=== PATIENT | female | born 1980 | race Caucasian/White ===

== ENCOUNTER → 2017-12-25 11:40 | Outpatient (CLI) | payer OTHER, SELFPAY ==
[2017-12-25 14:10] LABS: Cholesterol 221 mg/dL (200); Ferritin 12 ng/mL (8-252); High Density Lipoprotein 43 mg/dL; Triglycerides 102 mg/dL; Very Low Density Lipoprotein 20 mg/dL (5-40)
[2017-12-29 13:00] LABS: HPV HC, High Risk Negative (Negative)
== END ==
LOC: MFPLAB 11:40 → LABSPEC 15:10
PROVIDERS: Family Provider Family Medicine; PCP Family Medicine; Visit Provider Family Medicine
DX: Z00.00 Encounter for general adult medical examination without abnormal findings (principal); Z01.419 Encounter for gynecological examination (general) (routine) without abnormal findings
CPT/HCPCS: 36415; 80061; 82728; 87624; 88175; G0145

== ENCOUNTER → 2018-02-26 12:22 | Outpatient (CLI) | payer OTHER, SELFPAY ==
[2016-09-24 01:33] VITALS: BMI 30.8
[2018-02-26 14:22] LABS: Absolute Lymphocyte Count 1.88 X10^3/ul (0.83-4.51); Basophil# 0.03 X10^3/uL; Basophil% 0.4 % (0-1); Eosinophil# 0.09 X10^3/uL; Eosinophils% 1.2 % (0-5); Hematocrit 44.2 % (37-47); Hemoglobin 14.6 g/dl (12.0-15.0); Lymphocyte # 1.88 X10^3/ul (4.0); Lymphocyte % 25.4 % (19-41); Mean Corpuscular Hgb 29.3 pg (27.0-32.0); Mean Corpuscular Volume 88.6 fL (81-99); Mean Platelet Vol. 10.2 fl (6.2-12.0); Monocyte# 0.35 X10^3/uL; Monocyte% 4.7 % (0-10); Neutrophil # 5.03 X10^3/uL (2.7-7.7); Neutrophil % 68.2 % (47-70); Platelet Count 343 K/mm3 (150-450); RBC Distribution Width CV 12.7 % (11.6-14.6); RBC Distribution Width SD 40.8 fl (35.1-43.9); Red Blood Count 4.99 M/mm3 (4.2-5.4); White Blood Count 7.4 K/mm3 (4.4-11.0)
[2018-02-26 14:29] LABS: POSITIVE COUNT NO; POSITIVE DIFFERENTIAL NO; POSITIVE MORPHOLOGY NO
[2018-02-26 14:37] LABS: ALB/GLOB Ratio 1.1 RATIO (0.9-2.4); AST(SGOT) 18 U/L (15-37); Alanine Aminotransfer ALT/SGPT 30 U/L (13-56); Alkaline Phosphatase 71 U/L (45-117); Anion Gap 12 (5-15); BUN 10 mg/dL (7-18); BUN/Creat Ratio 12.8 RATIO (10-20); Calcium,Total 9.5 mg/dL (8.5-10.1); Chloride 106 mmol/L (98-107); Creatinine, Serum 0.78 mg/dL (0.55-1.02); EST Glomerular Filtration Rate 89 mL/min (>60); Est Glom Filt Rate - Afr Amer 107 mL/min (>60); Globulin 3.5 g/dL (2.2-4.2); Glucose 92 mg/dL (74-106); Lipase 92 U/L (73-393); Potassium 4.6 mmol/L (3.5-5.1); Protein, Total 7.5 g/dL (6.4-8.2); Sodium Level 141 mmol/L (136-145)
== END ==
PROVIDERS: Family Provider Family Medicine; PCP Family Medicine; Visit Provider Family Medicine
DX: K31.9 Disease of stomach and duodenum, unspecified (principal); R10.13 Epigastric pain; R10.11 Right upper quadrant pain
CPT/HCPCS: 36415; 80053; 83690; 85025

== ENCOUNTER → 2018-03-01 09:21 | Outpatient (CLI) | payer OTHER, SELFPAY ==
--- NOTE | 2018-03-01 09:32 | US_ITS ---
STUDY: ABDOMINAL ULTRASOUND - RIGHT UPPER QUADRANT REASON FOR VISIT: Female, 37 years old. Right upper quadrant pain TECHNIQUE: Ultrasound evaluation of the right upper quadrant was performed with real-time and static ojeda-scale imaging. TECHNICAL QUALITY: Adequate. COMPARISON: None. FINDINGS: Liver: The liver measures 13.3 cm. There is normal echogenicity of the liver. The bile ducts are within normal limits. There is hepatic color flow. The direction of portal flow is hepatopetal. There is no demonstrated mass lesion. Gallbladder: Normal distended gallbladder. The gallbladder wall measures 2 mm. There is a negative sonographic Seymour's sign. There is no pericholecystic fluid. There are no gallstones. Common Bile Duct (C.B.D.): The common bile duct measures 4 mm. Pancreas: Normal size of the head, body and tail of the pancreas. There is normal echogenicity of the pancreas. There is no demonstrated pancreatic mass or cyst. Right Kidney: Normal size of the right kidney. The right kidney measures 10.6 x 4.2 x 4.1 cm. Normal renal cortex. The right cortex measures 1.6 cm. There is no demonstrated renal mass or cyst. There is no right hydronephrosis. US/Abdomen Limited IMPRESSION: Normal right upper quadrant ultrasound examination. Electronically Signed: Carmelo Purdy DO at 0:00 EST Tel [phone], Service support ,
--- OUTSIDE RECORDS SUMMARY | 2018-04-26 10:19 | XMS RPT_ITS ---
:1980 Author Organization [facility] Care Team Providers Name Role Phone Nurse, Surgery Attending Unavailable Eleuterio Camacho Referring Unavailable Eleuterio Camacho Attending Unavailable Doug, Eleuterio Primary Care Unavailable Eleuterio Camacho Attending Unavailable Doug, Eleuterio Primary Care Unavailable Eleuterio Camacho Attending Unavailable Eleuterio Camacho Referring Unavailable Eleuterio Camacho Primary Care Unavailable PROBLEMS PROBLEMS DATE TYPE CONDITION / CODE ATTENDING STATUS SOURCE 02/26/2018 Unknown R10.11 - Right Eleuterio Camacho Active [place] upper quadrant Community pain / Hospital R10.11(ICD-10) Repository 02/26/2018 Unknown K31.9 - Disease Eleuterio Camacho Active [place]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 and Community duodenum, Hospital unspecified / Repository K31.9(ICD-10) 12/25/2017 Unknown Z00.00 - Eleuterio Camacho Active [place] Encounter for [facility] medical Repository examination without abnormal findings / Z00.00(ICD-10) PROCEDURES PROCEDURES No Procedure Records FoundRESULTS RESULTS ABDOMEN LIMITED Observed: 03/01/2018 Status: F Source: [place] 9:33 AM [facility] REPOSITORY [facility] Imaging Services [address] [place] [address] Abdomen Limited MR#: [id number] Acct: [id number] Name: CLEMENTE FELIX Rep #: [id number] : 1980 F 37 From: Carmelo Purdy DO PCP: Eleuterio Camacho MD Status: REG CLI Study: Abdomen Limited Date of Exam: 03/01/18 Exam# [id number] Ordering Dr: Eleuterio Cmaacho MD STUDY: ABDOMINAL ULTRASOUND - RIGHT UPPER QUADRANT REASON FOR VISIT: Female, 37 years old. Right upper quadrant pain TECHNIQUE: Ultrasound evaluation of the right upper quadrant was performed with real-time and static ojeda-scale imaging. TECHNICAL QUALITY: Adequate. COMPARISON: None. FINDINGS: Liver: The liver measures 13.3 cm. There is normal echogenicity of the liver. The bile ducts are within normal limits. There is hepatic color flow. The direction of portal flow is hepatopetal. There is no demonstrated mass lesion. Gallbladder: Normal distended gallbladder. The gallbladder wall measures 2 mm. There is a negative sonographic Seymour's sign. There is no pericholecystic fluid. There are no gallstones. Common Bile Duct (C.B.D.): The common bile duct measures 4 mm. Pancreas: Normal size of the head, body and tail of the pancreas. There is normal echogenicity of the pancreas. There is no demonstrated pancreatic mass or cyst. Right Kidney: Normal size of the right kidney. The right kidney measures 10.6 x 4.2 x 4.1 cm. Normal renal cortex. The right cortex measures 1.6 cm. There is no demonstrated renal mass or cyst. There is no right hydronephrosis. US/Abdomen Limited IMPRESSION: Normal right upper quadrant ultrasound examination. Electronically Signed: Carmelo Purdy DO at 0:00 EST Tel [phone], Service support , CC: Eleuterio Camacho MD Retinal Angiographer: Signed CBC W/DIFF, AUTOMATED Collected: 02/26/2018 Status: F Source: [place] 12:24 PM [facility] REPOSITORY TYPE CODE TESTS RESULT OUT OF RANGE REFERENCE UNITS LAB L100.1000 4.4-11.0 K/mm3 Normal WBC 7.4 LAB L100.1200 4.2-5.4 M/mm3 Normal RBC 4.99 LAB L100.1300 12.0-15.0 g/dl Normal HGB 14.6 LAB L100.1400 37-47 % Normal HCT 44.2 LAB L100.1500 81-99 fL Normal MCV 88.6 LAB L100.1600 27.0-32.0 pg Normal MCH 29.3 LAB L100.1700 32-36 g/gl Normal MCHC 33.0 LAB L100.1810 11.6-14.6 % Normal RDW CV 12.7 LAB L100.1820 35.1-43.9 fl Normal RDW SD 40.8 LAB L100.1900 150-450 K/mm3 Normal PLT 343 LAB L100.2000 6.2-12.0 fl Normal MPV 10.2 LAB L100.2100 47-70 % Normal NEUT% 68.2 LAB L100.2200 19-41 % Normal LY% 25.4 LAB L100.2300 0-10 % Normal MONO% 4.7 LAB L100.2400 0-5 % Normal EO% 1.2 LAB L100.2500 0-1 % Normal BASO% 0.4 LAB L100.2550 0.0-0.9 % Normal IM GRAN % 0.100 Result Comment: IG% - Immature Granulocytes (promyelocytes, myelocytes and metamyelocytes) > 1% indicates that a LEFT SHIFT is Present. LAB L100.2620 2.0-7.7 X10 3/uL Normal Absolute Neut 5.0 LAB L100.2720 0.83-4.51 X10 3/ul Normal Absolute Lymph 1.88 Performed By: #### L100.0100, L500.4050, L501.2450 #### [facility] [address] [place], [place], [id number] COMPREHENSIVE METABOLIC Collected: 02/26/2018 Status: F Source: [place] MARLEY 12:24 PM [facility] REPOSITORY TYPE CODE TESTS RESULT OUT OF RANGE REFERENCE UNITS LAB L501.0100 74-106 mg/dL Normal GLU 92 Result Comment: Please note revised GLUCOSE reference range effective 2017. LAB L501.1000 7-18 mg/dL Normal BUN 10 LAB L501.1100 0.55-1.02 mg/dL Normal CREAT,SERUM 0.78 Result Comment: The validity of the calculated GFR AND GFRAA in patients over 70 years has not been determined. Clinical correlation is essential. LAB L501.1110 >60 mL/min Normal EST GFR 89 Result Comment: Non- GFR Calc LAB L501.1115 >60 mL/min Normal EST GFR - AA 107 Result Comment: GFR Calc LAB L501.1300 10-20 RATIO Normal BUN/CRE 12.8 LAB L501.1500 6.4-8.2 g/dL T Normal PROT 7.5 LAB L501.1800 3.2-5.0 g/dL Normal ALB 4.0 LAB L501.1950 2.2-4.2 g/dL Normal GLOB 3.5 LAB L501.2000 0.9-2.4 RATIO Normal A/G 1.1 LAB L501.2200 8.5-10.1 mg/dL CA Normal 9.5 LAB L501.4100 15-37 U/L Normal AST 18 LAB L501.4305 45-117 U/L Normal ALK P 71 LAB L501.4405 13-56 U/L Normal ALT 30 LAB L501.4600 0.20-1.00 mg/dL T Normal BILI 0.50 LAB L501.5300 136-145 mmol/L NA Normal 141 LAB L501.5600 3.5-5.1 mmol/L K Normal 4.6 LAB L501.5900 98-107 mmol/L CL Normal 106 LAB L501.6100 21.0-32.0 mmol/L Normal CO2 23.0 LAB L501.6200 5-15 Normal GAP 12 Performed By: #### L100.0100, L500.4050, L501.2450 #### [facility] [address] [place], [address] LIPASE Collected: 02/26/2018 Status: F Source: GRAY 12:24 PM [facility] REPOSITORY TYPE CODE TESTS RESULT OUT OF RANGE REFERENCE UNITS LAB L501.2450 73-393 U/L Normal LIPASE 92 Performed By: #### L100.0100, L500.4050, L501.2450 #### [facility] [address] [place], [address] LIPID PROFILE Collected: 12/25/2017 Status: F Source: GRAY 11:42 AM [facility] REPOSITORY TYPE CODE TESTS RESULT OUT OF RANGE REFERENCE UNITS LAB L501.4900 200 mg/dL High CHOL 221 Result Comment: <200 mg/dL Desirable 200-240 mg/dL Borderline >240 mg/dL High Risk LAB L501.5000 mg/dL Normal TRIG 102 Result Comment: The drugs N-Acetylcysteine and Metamizole may falsely depress this assay. Serum Triglycerides Reference Interval Normal <150 mg/dL Borderline high 150 - 199 mg/dL High 200 - 499 mg/dL Very High > or = 500 mg/dL LAB L501.6400 mg/dL Normal HDL 43 Result Comment: The drugs N-Acetylcysteine and Metamizole may falsely depress this assay. Reference Range HDL <40 mg/dL Low HDL Cholesterol HDL >or= 60 mg/dL High HDL Cholesterol LAB L501.6500 0-130 mg/dL High LDL 158 LAB L501.6600 5-40 mg/dL Normal VLDL 20 Performed By: #### L500.4100, L503.6550 #### [facility] [address] [place], [address] FERRITIN Collected: 12/25/2017 Status: F Source: GRAY 11:42 AM [facility] REPOSITORY TYPE CODE TESTS RESULT OUT OF RANGE REFERENCE UNITS LAB L503.6550 8-252 ng/mL Normal FERRITIN 12 Performed By: #### L500.4100, L503.6550 #### [facility] [address] [place], [address] PAP I-G HPV HI Collected: 12/25/2017 Status: F Source: [place] RISK 11:30 AM [facility] REPOSITORY Order Comment: CYTOLOGY INFORMATION: - CLINICAL INFORMATION: - DATE LMP/MENOPAUSE: 12/11/17 LMP - COLLECTION VIAL: Thin Prep Vial - INTAKE NURSE SOURCE: VAGINAL - COLLECTION TECHNIQUE: BRUSH ONLY Specimen Comment: [id number] Specimen Comment: Source.............Vagina Specimen Comment: LMP / Prev Treat...[id number] Specimen Comment: No. of containers..01 ThinPrep Vial TYPE CODE TESTS RESULT OUT OF RANGE REFERENCE UNITS LAB L7400.0800 . Normal DIAGN Comment Result Comment: NEGATIVE FOR INTRAEPITHELIAL LESION AND MALIGNANCY. THIS SPECIMEN WAS RESCREENED PART OF OUR BUILDING ARCHITECT PROGRAM. LAB L7400.0900 . Normal ADEQ Comment Result Comment: Satisfactory for evaluation. LAB L7400.1400 . Normal PERFORM Comment Result Comment: Kaylynn Wilson, Van Driver (ASCP) LAB L7400.1500 . Normal QC Comment REV Result Comment: Monica Jefferson, Supervisory Van Driver (ASCP) LAB L7400.2575 . Normal TEST METHOD Comment Result Comment: This liquid based ThinPrep(R) pap test was screened with the use of an image guided system. LAB L7400.2600 . Normal . COMM LAB L7400.2700 . Normal PAPSMR Comment Result Comment: The Pap smear is a screening test designed to aid in the detection of premalignant and malignant conditions of the uterine cervix. It is not a diagnostic procedure and should not be used as the sole means of detecting cervical cancer. Both false-positive and false-negative reports do occur. LAB L7400.2950 Negative Normal HPV Negative HC,HGH RISK Result Comment: This high-risk HPV test detects thirteen high-risk types (16/18/31/33/35/39/45/51/52/56/58/59/68) without differentiation. Performed at: [address] [id number] Criminalist Technician: Rosy Bernard MD, Phone: [phone] Performed at: =[address] [id number] Criminalist Technician: Rosy Bernard MD, Phone: [phone] Performed By: #### L7400.0375 #### [facility] (refer to report for specific site) refer to report for address and phone number ALLERGIES ALLERGIES DATE TYPE / CODE NAME / CODE REACTION SEVERITY SOURCE 09/24/2016 Drug wheat/[id number] Swelling [place] Allergy/[id number](S (RXNORM) [facility]) Hospital Repository 09/24/2016 Miscellaneous [place]ONAL Other [place] Allergy/[id number]([facility]) Hospital Repository ENCOUNTERS ENCOUNTERS ADMIT/DISCHARGE ACCOUNT ADMITTING ENCOUNTER LOCATION SOURCE NUMBER CLASS 03/13/2018/ [id number] Ambulatory BMSBuilding:B [place] 8 4 [facility] Repository 03/01/2018 [id number] Ambulatory [place] 8 [facility] ing:[place] Repository 02/26/2018 [id number] Amb[place] [facility] 12/25/2017 [id number] Ambulatory [place] [facility] ing:[facility] Repository PAYERS PAYERS ENCOUNTER GUARANTOR PAYER SUBSCRIBER SOURCE 03/13/2018 CLEMENTE [id number] Primary CLEMENTE FELIXB: [place] SALGUERO Insurance:Post.Bid.Ship [id number] [facility] icy Number: [place], [place] [address]Fhm: [id number] Repository Date:[id number] [address]PV: 03/13/2018 Secondary NOT GIVENUNK [place] Insurance:SELF PAY [facility] Number: Effective Repository Date:2018-03-13 03/01/2018 CLEMENTE [id number] Primary CLEMENTE GAYTANB: [place] Insurance:Post[employer] [id number] [facility] icy Number: [place], [place] [address]Llx: [id number] Repository Date:3369-31-73[address], [place] [address]RZ: 03/01/2018 Secondary NOT GIVENUNK [place] Insurance:SELF PAY [facility] Number: Effective Repository Date:2018-02-27 02/26/2018 Clemente [id number] Primary Clemente GaytanB: [place] Jaime Insurance:[employer] [id number] Number: [place], [place] [address]Mlu: [id number] Repository Date:8198-05-67[address], [place] [address]IR: 02/26/2018 Secondary NOT GIVENUNK [place] Insurance:SELF PAY [facility]: Effective Repository Date:2018-02-26 12/25/2017 Clemente [id number] Primary Clemente GaytanB: [place] Jaime Insurance:[facility] [id number] [facility] icy Number: [place], [place] [address]Kms: [id number] Repository Date:3443-67-08[address] () [address], [place] [address]SI: 12/25/2017 Secondary NOT GIVENUNK [place] Insurance:SELF PAY [facility] Number: Effective Repository Date:2017-12-25
== END ==
PROVIDERS: Family Provider Family Medicine; PCP Family Medicine; Referring Provider Family Medicine; Visit Provider Family Medicine
DX: R10.11 Right upper quadrant pain (principal)
CPT/HCPCS: 76705

== ENCOUNTER → 2018-06-13 14:37 | Outpatient (CLI) | payer OTHER, SELFPAY ==
[2016-09-24 01:33] VITALS: BMI 30.8
== END ==
PROVIDERS: Family Provider Family Medicine; PCP Family Medicine; Referring Provider Family Medicine; Visit Provider Family Medicine
DX: Z20.818 Contact with and (suspected) exposure to other bacterial communicable diseases (principal)
CPT/HCPCS: 87070

== ENCOUNTER → 2018-12-19 10:55 | Outpatient (CLI) | payer OTHER, SELFPAY ==
[2016-09-24 01:33] VITALS: BMI 30.8
[2018-12-19 12:34] LABS: Absolute Lymphocyte Count 2.22 X10^3/uL (0.83-4.51); Absolute Neutrophil Count 4.3 X10^3/uL (2.0-7.7); Basophil# 0.06 X10^3/uL; Basophil% 0.8 % (0-1); Eosinophils% 5.3 % (0-5); Hematocrit 43.7 % (37-47); Hemoglobin 14.1 g/dL (12.0-15.0); Lymphocyte # 2.22 X10^3/ul (4.0); Lymphocyte % 29.6 % (19-41); Mean Corp Hgb Conc 32.3 g/dL (32-36); Mean Corpuscular Hgb 29.4 pg (27.0-32.0); Mean Platelet Vol. 10.2 fl (6.2-12.0); Monocyte# 0.46 X10^3/uL; Monocyte% 6.1 % (0-10); NRBC Flagged by Analyzer 0 % (0-5); Neutrophil # 4.33 X10^3/uL (2.7-7.7); Neutrophil % 57.9 % (47-70); Platelet Count 324 K/mm3 (150-450); RBC Distribution Width CV 12.5 % (11.6-14.6); RBC Distribution Width SD 41.2 fl (35.1-43.9); White Blood Count 7.5 K/mm3 (4.4-11.0)
[2018-12-19 12:47] LABS: ALB/GLOB Ratio 0.9 RATIO (0.9-2.4); AST(SGOT) 18 U/L (15-37); Alanine Aminotransfer ALT/SGPT 28 U/L (13-56); Albumin, Serum 3.9 g/dL (3.2-5.0); Alkaline Phosphatase 62 U/L (45-117); Anion Gap 5 (5-15); BUN 12 mg/dL (7-18); BUN/Creat Ratio 13.6 RATIO (10-20); Calcium,Total 9.3 mg/dL (8.5-10.1); Chloride 106 mmol/L (98-107); Cholesterol 213 mg/dL (200); Creatinine, Serum 0.88 mg/dL (0.55-1.02); EST Glomerular Filtration Rate 77 mL/min (>60); Est Glom Filt Rate - Afr Amer 93 mL/min (>60); Globulin 4.2 g/dL (2.2-4.2); Glucose 87 mg/dL (74-106); High Density Lipoprotein 50 mg/dL; Potassium 4.5 mmol/L (3.5-5.1); Protein, Total 8.1 g/dL (6.4-8.2); Sodium Level 137 mmol/L (136-145); Triglycerides 86 mg/dL; Very Low Density Lipoprotein 17 mg/dL (5-40)
== END ==
PROVIDERS: Family Provider Family Medicine; PCP Family Medicine; Referring Provider Family Medicine; Visit Provider Nurse Practitioner Family
DX: Z00.00 Encounter for general adult medical examination without abnormal findings (principal); E61.1 Iron deficiency
CPT/HCPCS: 36415; 80053; 80061; 85025

== ENCOUNTER 2020-03-22 21:11 | Emergency (ER) | payer OTHER, SELFPAY ==
[2020-03-22 21:11] VITALS: BP 137/82; PULSE 108; RESP 16; TEMP 36.1; O2SAT 100; BMI 29.0
--- NOTE | 2020-03-22 21:58 | RAD_ITS ---
STUDY: X-RAY - LEFT SHOULDER REASON FOR EXAM: Female, 39 years old. Pain after falling. TECHNIQUE: 2 view(s) of the shoulder. COMPARISON: None. FINDINGS: No visible fracture. No osseous destruction. Alignment anatomic. Mild degenerative changes of the acromioclavicular joint. Soft tissues unremarkable. RAD/Shoulder min 2 Views IMPRESSION: No acute osseous abnormality. Electronically Signed: Kb Chavez, at 22:16 EST Tel , Service support ,
--- NOTE | 2020-03-22 21:58 | RAD_ITS ---
STUDY: X-RAY - RIGHT FOOT CLINICAL: Female, 39 years old. Pain after injury. TECHNIQUE: 3 view(s) of the foot. COMPARISON: None. FINDINGS: No visible fracture. No osseous destruction. Alignment anatomic. No significant degenerative changes. Soft tissues unremarkable. RAD/Foot min 3 Views IMPRESSION: No acute osseous abnormality. Electronically Signed: Kb Chavez, at 22:18 EST Tel , Service support ,
--- NOTE | 2020-03-22 22:05 | ED.DCSUM_ITS ---
- ER Visit Summary Date of Service: 03/22/20 Chief Complaint: Fall History of Present Illness: The patient is a 39 F who presents after a fall that occurred today. Patient states she was walking and stepped on the edge of a curb. Patient inverted her right foot and ankle. Patient states she fell onto her left shoulder. Patient states the pain is worse in her right ankle. Patient states her pain is worse with any movement.. Patient states her pain is also worse with weightbearing. Patient denies any head injury or loss of consciousness. Patient denies any other injuries. Physical Examination: Vital signs are stable. Patient is afebrile. Patient is in no acute distress. Musculoskeletal exam reveals tenderness over the fifth metatarsal of the right foot. Range of motion was limited in all motions of the right foot secondary to pain. There is some mild edema. There is no ecchymosis. There is no bony crepitance or step-off. There is also tenderness over the left shoulder area. There is no obvious deformity. Range of motion was slightly limited in all motions of the left shoulder secondary to pain. There is no laxity appreciated. Cranial nerves II through XII are intact. Strength is 5/5 bilateral in the upper and lower extremities. There are no sensory deficits noted. Radial and pedal pulses are equal bilaterally. Test Results: X-rays of the right foot were obtained. There are 3 views. On my interpretation there is no acute fracture or dislocation. There is some soft tissue swelling. X-rays of the left shoulder were obtained. There are 2 views. On my interpretation, there is no fracture or dislocation. Radiologist also interpreted the x-rays and agrees. Emergency Department Course and Treatment: Patient was given a walking boot. Patient was instructed to take Tylenol or ibuprofen as needed for pain. Patient was instructed to follow-up with her primary care physician in 5 to 7 days. Patient understood and was agreeable with the plan. All questions were answered. Disposition: Discharge home Impression: 1. Right foot sprain 2. Left shoulder contusion This note was generated with SolveBoardation software. It may contain incorrect words, spelling, and punctuation that were not noted in review of the chart prior to signing ED Disposition - Plan for ED Patient: Disposition: Home or Assisted Living Diagnosis: Right foot sprain, Contusion of left shoulder Instructions: ED Contusion, Upper Extremity, ED Foot Sprain, ED Shoulder Contusion Referrals: Eleuterio Camacho MD [Primary Care Provider] - 5-7 Days
== END 2020-03-22 22:52 | disposition home or self-care (01) ==
PROVIDERS: Emergency Provider Emergency Medicine; PCP Family Medicine
DX: S93.601A Unspecified sprain of right foot, initial encounter (principal); S40.012A Contusion of left shoulder, initial encounter; Y93.01 Activity, walking, marching and hiking; W19.XXXA Unspecified fall, initial encounter
CPT/HCPCS: 73030; 73630; 99283

== ENCOUNTER → 2021-02-11 10:45 | Outpatient (CLI) | payer OTHER, SELFPAY ==
[2021-02-11 11:49] LABS: Absolute Lymphocyte Count 2.23 X10^3/uL (0.83-4.51); Absolute Neutrophil Count 3.9 X10^3/uL (2.0-7.7); Basophil# 0.07 X10^3/uL; Eosinophil# 0.23 X10^3/uL; Eosinophils% 3.3 % (0-5); Hemoglobin 14.4 g/dL (12.0-15.0); Lymphocyte # 2.23 X10^3/ul (0.83-4.51); Lymphocyte % 32.1 % (19-41); Mean Corp Hgb Conc 32.7 g/dL (32-36); Mean Corpuscular Hgb 29.9 pg (27.0-32.0); Mean Corpuscular Volume 91.3 fL (81-99); Mean Platelet Vol. 10.2 fl (6.2-12.0); Monocyte# 0.55 X10^3/uL; Monocyte% 7.9 % (0-10); NRBC Flagged by Analyzer 0 % (0-5); Neutrophil # 3.85 X10^3/uL (2.7-7.7); Neutrophil % 55.4 % (47-70); Platelet Count 342 K/mm3 (150-450); RBC Distribution Width CV 12.4 % (11.6-14.6); RBC Distribution Width SD 41.1 fl (35.1-43.9); Red Blood Count 4.82 M/mm3 (4.2-5.4)
== END ==
PROVIDERS: PCP Family Medicine
DX: M99.01 Segmental and somatic dysfunction of cervical region (principal); M99.04 Segmental and somatic dysfunction of sacral region; M99.02 Segmental and somatic dysfunction of thoracic region; M99.09 Segmental and somatic dysfunction of abdomen and other regions
CPT/HCPCS: 36415; 85025

== ENCOUNTER 2022-08-28 11:41 | Emergency (ER) | payer OTHER, SELFPAY ==
[2022-08-28 11:42] VITALS: BP 141/96; PULSE 78; RESP 16; TEMP 36.9; O2SAT 99; BMI 31.9
--- NOTE | 2022-08-28 13:18 | EX.ED.DYSGE1 ---
HPI History of Present Illness Chief Complaint: Rash Detail of Chief Complaint: Puretic weepy erythematous generalized rash Informant: patient Onset/Context/Timing Onset: Days Context: Sudden Onset Timing: Continuous Quality: Weepy paretic erythematous rash Location: Generalized Current Severity: Moderate Maximum Severity: Moderate Worsened by: Heat Relieved by: Nothing Associated Symptoms Associated Symptoms: No other symptoms Narrative Narrative: Patient is a 42-year-old woman who presents with a itchy erythematous weeping rash that involves the neck, torso and extremities. This started several days ago. She has no other complaints. Prior similar symptoms: No Recent Illness/Hospitalization: No PFSH PFSH Medical History no medical history Home Medications ascorbic acid (vitamin C) 500 mg capsule 500 mg PO DAILY 03/22/20 [History Last Taken Unknown] ferrous sulfate, dried 159 mg (45 mg iron) tablet,extended release 159 mg PO DAILY 03/22/20 [History Last Taken Unknown] hydroxyzine HCl 25 mg tablet 25 mg PO TID PRN itching #14 tabs 08/28/22 [Rx Last Taken Unknown] prednisone 10 mg tablet 10 mg PO UD #33 tabs 08/28/22 [Rx Last Taken Unknown] Allergy/AdvReac Type Severity Reaction Status Date / Time wheat Allergy Intermediate Swelling Verified 08/28/22 11:45 Seasonal Allergies: Uncoded Allergy NEEDS Verified 08/28/22 11:45 FOLLOW-UP Social History (Updated 08/28/22 @ 13:[address] Marito Lowery MD) household members: spouse Smoking Status: Never smoker substance use type: does not use ROS ROS ED Constitutional Constitutional ED: Denies chills, fever(s), subjective or sweats Gastrointestinal Gastrointestinal: Denies nausea or vomiting Musculoskeletal Musculoskeletal: Denies arthralgias or myalgias Integumentary Reports rash; Denies Abrasions Neurologic Neurologic: Denies headache(s) Hematologic/Lymphatic Hematologic/Lymphatic: Reports systems reviewed and no addt'l complaints, except as documented EXAM Physical Exam Const Vital Signs: 08/28/22 11:42 Temperature 98.4 F Temperature Source Temporal Pulse Rate 78 Respiratory Rate 16 Blood Pressure 141/96 H Blood Pressure Mean 111 Pulse Ox 99 Oxygen Delivery Method Room Air Positive well nourished, well developed and obese General Appearance ED: well developed and NAD Nutritional Appearance: obese HEENT Reports moist mucous membranes trauma Eyes PERRL and EOMs intact bilaterally General Eye ED: Negative for pale conjunctiva or scleral icterus Neck no lymphadenopathy, supple and no JVD Resp normal respiratory effort Cardio regular rate Extremity Extremity Narrative: Rash consistent with contact dermatitis Neuro oriented x3 and CN's II-XII intact bilaterally Sensorium / Orientation: alert Psych mental status grossly normal Skin Skin Narrative: Rash that is consistent with contact dermatitis Rashes: rashes noted MDM MDM MDM Narrative Medical decision making narrative: Patient has a generalized rash consistent with contact dermatitis. This may represent poison wally etc. Since there is involvement in the face and the area of involvement is extensive she was treated with systemic steroids. She received her first dose of prednisone in the emergency department. She also received hydroxyzine for itching. Discharge Plan Triage Chief Complaint: Rash ED Provider: Marito Lowery Dx/Rx/DC Orders Clinical Impression: Contact dermatitis Instructions: ED Contact Dermatitis Prescriptions: New prednisone 10 mg tablet 10 mg PO UD Qty: 33 0RF Rx Instructions: Take 4 tablets daily for 3 days, then 3 daily for 3 days, then 2 daily for 3 days, then 1 a day for 3 days then 1 QOD for 3 doses. hydroxyzine HCl 25 mg tablet 25 mg PO TID PRN (Reason: itching) Qty: 14 0RF No Action ferrous sulfate, dried 159 MG tablet extended release 159 mg PO DAILY ascorbic acid (vitamin C) 500 MG capsule 500 mg PO DAILY Primary Care Provider: Eleuterio Camacho Referrals: Eleuterio Camacho MD [Primary Care Provider] - 1 Week if not improving Disposition Disposition: Home, Self Care
[2022-08-28] MEDS: predniSONE 20 MG Tablet 60 MG PO (13:36)
[2022-08-28] MEDS: hydrOXYzine 10 MG Tablet 20 MG PO (13:37)
== END 2022-08-28 13:42 | disposition home or self-care (01) ==
LOC: ED 13:34
PROVIDERS: Emergency Provider Emergency Medicine; PCP Family Medicine; Visit Provider Emergency Medicine
DX: L25.9 Unspecified contact dermatitis, unspecified cause (principal); E66.9 Obesity, unspecified
CPT/HCPCS: 99283

== ENCOUNTER → 2023-04-28 | Outpatient (CLI) | payer OTHER, SELFPAY ==
--- OUTSIDE RECORDS SUMMARY | 2023-04-28 15:44 | XMS RPT_ITS | CCD ---
Author Name Unknown Address [address] [facility] [address] [place] [address] Organization [facility] Care Team Providers Care Behavioral Health Director Name Role Phone DR PUNEET BURNS Admitting Unavailable PATRICK BRIGGS Referring Unavailable PATRICK BRIGGS Consulting Unavailable GRANT, DR PUNEET Lincoln Attending Unavailable GRANT, DR PUNEET Lincoln Primary Care Unavailable PROVIDER, UNKNOWN Consulting Unavailable Results Test Name Value Interpretation Reference Range Facil ity Encounters Encounter Date Encounter Type Care Provider Facility Start: 09-21-2020 End: 09-21-2020 Emergency department patient visit DR PUNEET BURNS [facility] Payers Date Payer Category Payer Unknown [id number] Worker's Compensation [id number] Summary Purpose Family History No Family History Records Found Advance Directives No Advanced Directives Records Found Additional Source Comments INFORMATION SOURCE (unrecogn ized section and content) FOR RECORDS PERTAINING TO PATIENTS WHO ARE OR HAVE BEEN ENROLLED IN A CHEMICAL DEPENDENCY/SUBSTANCEABUSE PROGRAM, SOME INFORMATION MAY BE OMITTED. This clinical summary was aggregated from multiple sources. Caution should be exercised in using it in the provision of clinical care. This summary normalizes information from multiple sources, and as a consequence, information in this document may materially change the coding, format and clinical context of patient data. In addition, data may be omitted in some cases. CLINICAL DECISIONS SHOULD BE BASED ON THE PRIMARY CLINICAL RECORDS. [employer] provides no warranty or guarantee of the accuracy or completeness of information in this document.
[2023-04-28 17:46] LABS: Absolute Lymphocyte Count 2.41 X10^3/uL (0.83-4.51); Absolute Neutrophil Count 4.3 X10^3/uL (2.0-7.7); Basophil# 0.05 X10^3/uL; Basophil% 0.7 % (0-1); Eosinophil# 0.31 X10^3/uL; Eosinophils% 4.1 % (0-5); Hematocrit 43.3 % (37-47); Lymphocyte # 2.41 X10^3/ul (0.83-4.51); Lymphocyte % 31.9 % (19-41); Mean Corp Hgb Conc 32.3 g/dL (32-36); Mean Corpuscular Volume 89.6 fL (81-99); Mean Platelet Vol. 10.1 fl (6.2-12.0); Monocyte# 0.44 X10^3/uL; Monocyte% 5.8 % (0-10); NRBC Flagged by Analyzer 0 % (0-5); Neutrophil # 4.32 X10^3/uL (2.7-7.7); Neutrophil % 57.1 % (47-70); Platelet Count 355 K/mm3 (150-450); RBC Distribution Width CV 12.2 % (11.6-14.6); RBC Distribution Width SD 39.9 fl (35.1-43.9); Red Blood Count 4.83 M/mm3 (4.2-5.4); White Blood Count 7.6 K/mm3 (4.4-11.0)
[2023-04-28 18:24] LABS: AST(SGOT) 15 U/L (15-37); Alanine Aminotransfer ALT/SGPT 32 U/L (13-56); Alkaline Phosphatase 72 U/L (45-117); Anion Gap 6 (5-15); BUN 15 mg/dL (7-18); BUN/Creat Ratio 20.4 RATIO (10-20); Calcium,Total 9.7 mg/dL (8.5-10.1); Chloride 105 mmol/L (98-107); Cholesterol 249 mg/dL (200); Creatinine, Serum 0.73 mg/dL (0.55-1.02); EST Glomerular Filtration Rate 93 mL/min (>60); Est Glom Filt Rate - Afr Amer 112 mL/min (>60); Ferritin 52 ng/mL (8-252); Glucose 83 mg/dL (74-106); High Density Lipoprotein 49 mg/dL; Magnesium 2.4 mg/dL (1.6-2.6); Sodium Level 136 mmol/L (136-145)
[2023-05-04 00:07] LABS: Alternaria alternata <0.10 kU/L (Class 0); Aspergillus fumigatus <0.10 kU/L (Class 0); Bahia Grass 0.75 kU/L (Class II); Bermuda Grass 0.31 kU/L (Class 0/I); Bluegrass, Kentucky 0.83 kU/L (Class II); Cat Hair/Dander, Standard <0.10 kU/L (Class 0); Cedar, Mountain 0.38 kU/L (Class I); Cladosporium herbarum <0.10 kU/L (Class 0); Cockroach, American 0.45 kU/L (Class I); D pteronyssinus 0.88 kU/L (Class II); Dog Epithelia <0.10 kU/L (Class 0); Elm, American White 1.64 kU/L (Class III); Hazelnut Tree 0.28 kU/L (Class 0/I); Hickory, White 2.59 kU/L (Class III); Maple/Box Elder 0.49 kU/L (Class I); Mucor racemosus <0.10 kU/L (Class 0); Mugwort 1.14 kU/L (Class II); Mulberry, White <0.10 kU/L (Class 0); Nettle 1.02 kU/L (Class II); Penicillium chrysogen <0.10 kU/L (Class 0); Pigweed, Rough 0.52 kU/L (Class I); Plantain, English 0.14 kU/L (Class 0/I); Ragweed, Short/Common 0.83 kU/L (Class II); Sheep Sorrel(Dock) 0.31 kU/L (Class 0/I); Stemphylium herbarum <0.10 kU/L (Class 0); Sweet Gum 0.23 kU/L (Class 0/I); Sycamore, American 0.86 kU/L (Class II)
== END | disposition home or self-care (01) ==
LOC: MFPLAB 15:23
PROVIDERS: PCP Family Medicine; Visit Provider Family Medicine
DX: E61.1 Iron deficiency (principal); G43.909 Migraine, unspecified, not intractable, without status migrainosus; Z13.220 Encounter for screening for lipoid disorders; Z91.018 Allergy to other foods
CPT/HCPCS: 36415; 80053; 82465; 82728; 83718; 83735; 85025; 86003